=== PATIENT | female | born 2005 | race Caucasian/White ===

== ENCOUNTER 2025-04-17 21:39 | Emergency (ER) | payer OTHER, SELFPAY ==
[2025-04-17 21:45] VITALS: BP 115/70; PULSE 76; TEMP 36.9; O2SAT 95; BMI 26.5
[2025-04-17] MEDS: DEXAMETHASONE 4 MG TABLET 8 MG PO (23:27)
--- NOTE | 2025-04-18 02:39 | ED.GENADUL1 ---
HPI HPI - General Adult General Chief complaint: Upper Respiratory Infection Stated complaint: SORE THROAT Time Seen by Provider: 04/17/25 22:49 Source: patient Mode of arrival: walk-in History of Present Illness HPI narrative: Patient is a 19-year-old female presenting to the emergency department for concerns of a sore throat. Patient states has been having mild sore throat and a mild cough for the last 2 days. She believes this may be secondary to cigarette use. Other than the sore throat, she has no other concerning symptoms. She denies fevers or chills. No trouble breathing or swallowing. She denies any pain in her ears, runny nose, chest pain, or shortness of breath. Related Data Allergies Allergy/AdvReac Type Severity Reaction Status Date / Time No Known Drug Allergies Allergy Verified 04/17/25 23:19 Opioid HPI Opioid Management Most Recent Opioid Data: Last Pain Scale 6 04/17/25, 21:56 Review of Systems ROS Status of ROS 10 or more systems reviewed and unremarkable except as noted in history and below PFSH PFSH Social History Little interest or pleasure in doing things: not at all Feeling down, depressed, or hopeless: not at all Exam Narrative Exam Narrative: CONSTITUTIONAL: Well-appearing, her voice is mildly hoarse, answering questions and following commands appropriately SKIN: Was warm and dry. EYES: Sclerae white. No conjunctival exudates. EARS, NOSE, THROAT: Mild posterior oropharynx erythema. No tonsil enlargement or exudates. No trismus. Uvula midline. No peritonsillar abscess. No neck swelling. No tenderness at the floor of the mouth. Moist oral mucosa. RESPIRATORY: Clear to auscultation bilaterally, no wheezes, crackles, or stridor, no use of accessory muscles CARDIOVASCULAR: Normal rate and regular rhythm. There is no S3, S4, murmur, rub. GASTROINTESTINAL: Abdomen is nondistended. MUSCULOSKELETAL: No peripheral edema. NEUROLOGIC: Patient is awake and alert. Facies were symmetrical. Constitutional Vital Signs, click to edit/add: Last Vital Signs Temp 98.4 F 04/17/25 21:45 Pulse 76 04/17/25 21:45 Resp 18 04/17/25 21:45 BP 115/70 04/17/25 21:45 Pulse Ox 95 04/17/25 21:45 O2 Del Method Room Air 04/17/25 21:45 Course Vital Signs Vital signs: Vital Signs Temperature 98.4 F 04/17/25 21:45 Pulse Rate 76 04/17/25 21:45 Respiratory Rate 18 04/17/25 21:45 Blood Pressure 115/70 04/17/25 21:45 Pulse Oximetry 95 04/17/25 21:45 Oxygen Delivery Method Room Air 04/17/25 21:45 Temperature 98.4 F 04/17/25 21:45 Pulse Rate 76 04/17/25 21:45 Respiratory Rate 18 04/17/25 21:45 Blood Pressure 115/70 04/17/25 21:45 Pulse Oximetry 95 04/17/25 21:45 Oxygen Delivery Method Room Air 04/17/25 21:45 Medical Decision Making MDM Narrative Medical decision making narrative: Patient is a 19-year-old female presenting to the emergency department with 2-day history of a sore throat. Her vital signs are within normal limits. She is afebrile and hemodynamically stable. Examination as noted above, however was consistent with a viral pharyngitis. There is no evidence of peritonsillar abscess or other severe ENT infection. Her streptococcal pharyngitis screen was negative. I do believe the patient is stable for discharge at this time. Patient's presentation is most likely consistent with viral pharyngitis. She was given a dose of Decadron here in the ED for symptomatic treatment. They were instructed to follow up with her PCP for further care. Return precautions were given including any new or worsening symptoms. Patient understands and agrees to the plan. FINAL IMPRESSION: #Acute viral pharyngitis DISPOSITION: Discharged home CONDITION: Good Lab Data Lab results reviewed: Yes I reviewed the patient's lab results Labs: Lab Results 04/17/25 Range/Units 21:50 Streptococcus Screen Negative Discharge Plan Discharge Chief Complaint: Upper Respiratory Infection Clinical Impression: Pharyngitis Patient Disposition: Home, Self-Care Time of Disposition Decision: 23:12 Condition: Good Mode of Transportation: Private Vehicle Print Language: Icelandic Instructions: Pharyngitis (ED) Referrals: Physician,Non-Staff, MD [Primary Care Provider] - 1 week Discharge Date/Time: 04/17/25 23:34
== END 2025-04-17 23:34 | disposition home or self-care (01) ==
PROVIDERS: Emergency Provider Student in an Organized Health Care Education/Training Program
DX: J02.9 Acute pharyngitis, unspecified (principal); F17.210 Nicotine dependence, cigarettes, uncomplicated
CPT/HCPCS: 87070; 87880; 99283; J8540